=== PATIENT | female | born 1955 | race Caucasian/White ===

== ENCOUNTER 2017-12-07 11:13 | Inpatient (IN) | payer OTHER ==
--- NOTE | 2017-12-07 12:22 | PDGENHP ---
History and Physical - Chief Complaint melena, Fatigue - History of Present Illness 62 yo female with Pancreatic cancer who is getting chemotherapy presented to Oncology today for Melena and weakness. Found to have an acute drop in Hgb and sent here for direct admission. She reports Melena x several days with increasing fatigue. NO CP or SOB. No hx of GIB. In the office, labs showed a 4 point drop in Hgb. Her VS are stable. She is not tachycardic. She does not have an known CV disease. She is not on blood thinners or Platelet inhibitors She has also had + nausea and some abd discomfort. NO diarrhea. NO emiss. Denies fevers, focal weakness, urinary symptoms, cough, legs swelling, palpitations PMHx: Pancreatic cancer Sjogren Soc: social ETOH, no tobacco, retired nurse FmHx: hx of PE and Afib (mother) Labs: reviewed History Information I have personally reviewed and updated: medical history, social history - Social History Smoking Status: Never smoked Review of Systems Review of Systems: ROS: 10pt was reviewed & negative except for what was stated in HPI & below Physical Exam Physical Exam: Temp Pulse Resp BP Pulse Ox 36.6 C 89 12 98/78 L 98 12/07/17 11:57 12/07/17 11:57 12/07/17 11:57 12/07/17 11:57 12/07/17 11:57 Constitutional: no apparent distress, appears nourished Eyes: PERRL, EOMI Ears, Nose, Mouth, Throat: moist mucous membranes, hearing normal Cardiovascular: regular rate and rhythym, No edema Respiratory: no respiratory distress, no rales or rhonchi, clear to auscultation Gastrointestinal: normoactive bowel sounds, soft, non-tender abdomen Skin: warm Musculoskeletal: full muscle strength Neurologic: AAOx3 Psychiatric: interacting appropriately, not anxious, not encephalopathic Lymph, Heme, Immunologic: No petechiae Assessment & Plan Assessment: #ABLA #GI Bleed, Melena #Pancreatic cancer, on chemotherapy #Fatigue and Weakness due to ABLA Plan: Admit Transfuse IVF while awaiting transfusion GI consult IV Protonix Onc Consult Screening CT Chest and Abdomen
[2017-12-07] MEDS ORDERED: ONDANSETRON 4 MG/2 ML VIAL IVP PRN (12:25)
[2017-12-07] MEDS ORDERED: NS 500 ML IV ONE (12:25)
[2017-12-07] MEDS ORDERED: ACETAMINOPHEN 325 MG TAB PO PRN (12:25)
[2017-12-07] MEDS ORDERED: ONDANSETRON DISINTEGRATING 4 MG TAB PO PRN (12:25)
[2017-12-07] MEDS ORDERED: PANTOPRAZOLE SODIUM 40 MG VIAL IVP SCH (12:30)
--- NOTE | 2017-12-07 14:16 | GCON ---
[f rep st] CONSULTATION ONCOLOGY INITIAL VISIT PRIMARY ONCOLOGIST: Maurizio Altamirano MD. REASON FOR VISIT: Evaluation and management of pancreatic cancer. HISTORY OF PRESENT ILLNESS: The patient is a 62-year-old woman who was initially diagnosed February 2017 with a metastatic pancreatic cancer with mets to the liver. She presented with right upper nessa drant pain with radiation to the back, decreased appetite, and fatigue. The liver was biopsied and w as consistent with an upper GI origin, and her CA-19-9 was about 330,000. Upper endoscopy with ultra sound showed a tumor in the body of the pancreas invading the splenic vein, and a biopsy was positive for adenocarcinoma. Interestingly, it was HER/2 amplified by FISH. She started on FOLFIRINOX and h ad a good response after the first 6 cycles. After cycle 10, oxaliplatin was dropped due to worsenin g peripheral neuropathy. She still has it, but slowly getting better. She has also moved from every 2 week treatments to every 3 week treatments. Generally, she has been tolerating it and managing it well with the last week and a half for the next treatment, she would be feeling essentially back to normal. She called last evening with complaints of black stool last Tuesday. Since that time she had been fee ling fatigued, but she denied any further melena. She did have multiple loose stools yesterday, gayle malorie. In the office today, her blood count came back with a fairly acute drop in her hemoglobin from 12.5 g/dL a couple of weeks ago to 8.4. She is admitted for management and workup of GI bleed. ALLERGIES: She has no known drug allergies. HOME MEDICATIONS: Include simethicone, loperamide as needed, potassium, multivitamin, lorazepam, Lom otil, Creon 36,000 units, herbs, and estradiol. 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 Cheung. SURGICAL HISTORY: Unremarkable. SOCIAL HISTORY: Drinks alcohol occasionally. Does not smoke. She is a retired nurse. FAMILY HISTORY: Significant for colon cancer in her mother. REVIEW OF SYSTEMS: 10-point review of systems performed. Pertinent positives as per HPI, otherwise negative. PHYSICAL EXAM: VITAL SIGNS: Her temperature is 36.6, pulse 89. Blood pressure is 98/78. Blood pre ssure is a little lower than her typical. Weight was 138. GENERAL: She is a well-appearing woman. She is in no distress. HEENT: Unremarkable. LUNGS: Clear. CARDIAC: Regular without murmur. ABD OMEN: Soft, nontender without significant organomegaly. MUSCULOSKELETAL: Nontender over her spine. NEUROLOGIC: Grossly intact. LABS: White count today is 9600 with an ANC of 7100. Hemoglobin is 8.4 g/dL. It was 12.5 two weeks ago. Platelet count is 140,000. Her chemistries from 2 weeks ago were unremarkable. Her last CA-19 -9 was 1191 and continuing to respond to chemotherapy. IMPRESSION: 1. Probable upper gastrointestinal bleed. 2. Metastatic pancreatic cancer, clinically under good control with current chemotherapy. Plan is t o reimage her with CT chest, abdomen, and pelvis, which can be done while in the hospital. 3. Remote history of Sjogren syndrome. DISCUSSION/PLAN: Her history is consistent with an acute gastrointestinal bleed, but may have stoppe d. She is being admitted to the hospital and treated supportively, but clinically she is doing well so far. GI has been consulted and while here, we will get a CT scan. Hopefully, it will be nothing too serious and if her disease is still under good control, then she will be discharged relatively so on. We will follow along with you in the hospital. /[id number]/MODL
[2017-12-07] MEDS ORDERED: fentaNYL 100 MCG/2 ML INJ ONE (14:25)
[2017-12-07] MEDS ORDERED: MIDAZOLAM 2 MG/2 ML VIAL ONE (14:25)
[2017-12-07] MEDS ORDERED: EPINEPHrine 1 MG/10 ML SYR IVP ONE (14:25)
[2017-12-07 14:59] LABS: INR 1.07 (0.83-1.16); PROTIME(PATIENT) 14.1 SEC (12.0-15.0)
[2017-12-07] MEDS ORDERED: DIPHENOXYLATE/ATROPINE LOMOTIL 1 TAB PO PRN (15:21)
[2017-12-07] MEDS ORDERED: SIMETHICONE 80 MG TAB CHEW PO PRN (15:21)
--- NOTE | 2017-12-07 15:41 | GCON ---
[f rep st] CONSULTATION GI INPATIENT CONSULTATION DATE OF CONSULTATION: 12/07/2017 REFERRING PHYSICIAN: Hood Velazquez MD I was kindly requested to see patient by Dr. Velazquez in consultation for a chief complaint of melena. She is a 62-year-old white female who noticed this over the last several days. With this, she has had some increasing fatigue. She was seen by her oncologist today, and noted to have a drop in her baseline hematocrit, and was admitted to the hospital. She has had some indigestion lately. She has been using ibuprofen for headaches for about 1 week. She has also had some nausea. She denies heartburn. She denies iron use, Pepto-Bismol. She has metastatic pancreatic cancer, and is presently undergoing chemotherapy. For the most part, she believes her tumor is responding. She did undergo colonoscopy in 2014, for a family history of colon cancer, and she states this was unremarkable. Some diverticulosis was noted. PAST MEDICAL HISTORY: 1. As above. 2. Otherwise, noncontributory. MEDICATIONS: Outpatient include Gas-X and Imodium as needed, Lomotil as needed , potassium daily, Ativan before bed, and Creon 36,000 units, 2 tablets with meals. Inpatient medications include pantoprazole 40 mg IV twice a day. ALLERGIES: No known drug allergies. SOCIAL HISTORY: Social alcohol only. She is a retired nurse. FAMILY HISTORY: Negative for similar melena. REVIEW OF SYSTEMS: Positive pertinent review of systems as per my HPI. Otherwise, complete review of systems is negative. PHYSICAL EXAM: CONSTITUTIONAL: Nontoxic appearing, pleasant woman. SKIN: Warm, dry. EYES: Pupils equal, round, reactive to light and accommodation. EARS, NOSE, MOUTH, AND THROAT: Oropharynx without masses, moist mucosa. CARDIOVASCULAR: Normal S2, normal PMI. RESPIRATORY: Lungs clear to auscultation and percussion anteriorly. GASTROINTESTINAL: Abdomen soft, without significant tenderness. NEUROLOGIC: Grossly nonfocal, cranial nerves grossly intact. PSYCHIATRIC: Orientation, insight appropriate. MUSCULOSKELETAL: Strength grossly normal throughout, normal station. LABORATORIES: Include an outpatient hemoglobin of 8.4, decreased from her baseline of 12.5. Several weeks ago, she apparently had unremarkable chemistries. ASSESSMENT: Description of melena, with a drop in her hematocrit. Suspect due to gastrointestinal blood loss. In turn, suspect an upper source. Peptic ulcer disease from ibuprofen is most likely. Other possibilities could include tumor invasion into her stomach or duodenum. Bleeding from her pancreatic cancer into her pancreatic duct is also possible. PLAN: 1. I have recommended upper endoscopy. She wishes to hold off on this for today. 2. CT imaging has been ordered. Possibly, this could show worsening pancreatic cancer or invasion into the upper GI tract. 3. Clear liquids for dinner and breakfast. N.p.o. after breakfast tomorrow, in case upper endoscopy needed in the afternoon. 4. Serial hematocrits, transfusion of blood as needed. 5. IV fluids. 6. For now, we will change her Protonix to a Protonix drip. Thank you for allowing me to help in the management of the patient. /[id number]/MODL MTDD
--- NOTE | 2017-12-07 15:53 | PDMN ---
Medical Necessity Medical necessity: MCG: M180 GIB-upper A-2 days: pt with melena, weakness and fatigue, ABLA, HX of pancreatic Ca on chemo, further monitoring and tx needed.
[2017-12-07] MEDS ORDERED: IOPAMIDOL (ISOVUE-300) 100 ML BTL ONE (18:14)
[2017-12-07] MEDS: LIPASE 24,000/AMYLASE/PROTEASE (CREON) 1 CAP PO SCH (18:45)
[2017-12-07] MEDS ORDERED: PANTOPRAZOLE SODIUM 40 MG TAB PO SCH (21:00)
[2017-12-07] MEDS ORDERED: LORazepam 1 MG TAB PO SCH (21:00)
[2017-12-07] MEDS: PANTOPRAZOLE SODIUM 40 MG VIAL IVP SCH (22:25)
[2017-12-08] MEDS: 1/2 NS 1,000 ML IV SCH ×2 (01:56→14:34)
[2017-12-08] MEDS: PANTOPRAZOLE SODIUM 40 MG VIAL IVP SCH ×2 (04:31→09:11)
[2017-12-08 06:43] LABS: PLATELET COUNT 127 10^3/uL (150-400)
[2017-12-08] MEDS: LIPASE 24,000/AMYLASE/PROTEASE (CREON) 1 CAP PO SCH ×3 (07:39→17:43)
[2017-12-08] MEDS ORDERED: ESTRADIOL PO SCH (09:00)
[2017-12-08] MEDS ORDERED: MULTIVITAMINS 1 EACH TAB PO SCH (09:00)
[2017-12-08] MEDS ORDERED: NORETHINDRONE ACET PO SCH (09:00)
[2017-12-08] MEDS: LOPERAMIDE HCL 2 MG CAP PO PRN ×2 (09:11→09:12)
[2017-12-08] MEDS ORDERED: PANTOPRAZOLE SODIUM 40 MG VIAL IVP SCH ×2 (11:00→21:00)
--- NOTE | 2017-12-08 11:49 | SOAPPROG ---
[facility] Progress Note Assessment/Plan: E&M pancreatic cancer * Pancreatic cancer: day 16 cycle 16 FOLFURINOX (minus oxaliplatin); counts ok. CT looks probably stable but will defer to Dr. Altamirano. Counts ok * GI bleed: esophageal varices seen on CT; probable source of bleeding. Has EGD scheduled today. H/H is ok so seems like she has stopped with the acute bleed. Subjective: Had 2 large volume dark stools but no obvious blood. Feels well. Objective: Vital Signs Temp Pulse Resp BP Pulse Ox 36.9 C 79 16 118/83 H 94 12/08/17 07:30 12/08/17 07:30 12/08/17 07:30 12/08/17 07:30 12/08/17 07:30 Laboratory Results 12/08/17 06:30 12/08/17 06:30 12/07/17 12/08/17 12/09/17 05:59 05:59 05:59 Intake Total 450 Output Total 1200 Balance -750 PT 14.1 SEC (12.0-15.0) 12/07/17 14:30 INR 1.07 (0.83-1.16) 12/07/17 14:30 CT Scan of the Abdomen and Pelvis (With Contrast) at 1825 hours Impression: 1. Decreased size and number of pathology proven liver metastases. 2. No new or worsening metastatic disease. 3. New gastroesophageal varices and periumbilical venous dilatation compatible with portal hypertension. 4. Trace perihepatic free fluid. Dictated By: Eder Bedoya MD Physical Exam - Physical Exam General Appearance: no apparent distress Respiratory: lungs clear Cardiac/Chest: regular rate, rhythm Abdomen: non-tender, soft ICD10 Worksheet Patient Problems: Problems Problem Status Onset Esophageal varices Acute GI bleed Acute Pancreatic cancer metastasized to liver Chronic
--- NOTE | 2017-12-08 13:05 | HOSPPROG ---
Hospitalist Progress Note Assessment/Plan: #Acute blood loss anemia #GI Bleed, likely upper, Melena #Pancreatic cancer, on chemotherapy -CT chest and Abd/Pelvis with no new lesions. She will f/u with her Oncologist #Fatigue and Weakness due to ABLA Plan: -Onc care and mgmt per Oncology -s/p transfusion -serial H/H -will have scope today -cont IV Protonix -Dispo: d/c home soon pending endoscopy and no further bleeding. Subjective: Additional episodes of melena yesterday and today. no cp or sob. tolerated transfusion fine. Objective: Vital Signs Temp Pulse Resp BP Pulse Ox 36.9 C 79 16 118/83 H 94 12/08/17 07:30 12/08/17 07:30 12/08/17 07:30 12/08/17 07:30 12/08/17 07:30 Laboratory Results 12/08/17 12:25 12/08/17 06:30 12/07/17 12/08/17 12/09/17 05:59 05:59 05:59 Intake Total 450 Output Total 1200 Balance -750 PT 14.1 SEC (12.0-15.0) 12/07/17 14:30 INR 1.07 (0.83-1.16) 12/07/17 14:30 - Physical Exam Constitutional: no apparent distress, appears nourished Eyes: PERRL, EOMI Ears, Nose, Mouth, Throat: moist mucous membranes, hearing normal Cardiovascular: regular rate and rhythym, No edema Respiratory: no respiratory distress, no rales or rhonchi, clear to auscultation Gastrointestinal: normoactive bowel sounds, soft, non-tender abdomen Skin: warm Musculoskeletal: No generalized weakness Neurologic: AAOx3 Psychiatric: interacting appropriately, not anxious, not encephalopathic Lymph, Heme, Immunologic: No petechiae ICD10 Worksheet Patient Problems: Problems Problem Status Onset Esophageal varices Acute GI bleed Acute Pancreatic cancer metastasized to liver Chronic
--- NOTE | 2017-12-08 14:53 | ASMTCMCOM ---
CM Note CM Note Notes: Pt have upper endo today to look for source of GI bleed. Pt's DC needs are TBD. Date Signed: 12/08/2017 02:53 PM Electronically Signed By:Chastity Nguyen LCSW
[2017-12-08] MEDS ORDERED: EPINEPHrine 1 MG/10 ML SYR IVP ONE (16:14)
--- NOTE | 2017-12-08 16:17 | PDANEPAE ---
ANE History of Present Illness hematochezia, anemia, s/p tx of PRBC ANE Past Medical History - Cardiovascular History Hx Hypertension: No Hx Arrhythmias: No Hx Chest Pain: No Hx Coronary Artery / Peripheral Vascular Disease: No Hx CHF / Valvular Disease: No Hx Palpitations: No - Pulmonary History Hx COPD: No Hx Asthma/Reactive Airway Disease: No Hx Recent Upper Respiratory Infection: No Hx Oxygen in Use at Home: No Hx Sleep Apnea: No Sleep Apnea Screening Result - Last Documented: Negative - Neurologic History Hx Cerebrovascular Accident: No - Endocrine History Hx Diabetes: No Hypothyroid: No Hyperthyroid: No Obesity: no - Renal History Hx Renal Disorders: No - Liver History Hx Hepatic Disorders: No - Neurological & Psychiatric Hx Hx Neurological and Psychiatric Disorders: Yes Neurological / Psychiatric History 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 - Cancer History Hx Cancer: Yes Cancer History Comment: pancreatic cancer, dx in 03/13 - GI History GERD: no Hx Gastrointestinal Disorders: Yes Gastrointestinal History Comment: GI Bleeding - Chronic Pain History Chronic Pain: No - Surgical History Prior Surgeries: cholecystectomy, endometrial ablation ANE Review of Systems Review of Systems: - Exercise capacity METS (RN): 3 METS ANE Patient History - Allergies Allergies/Adverse Reactions: No Allergies [NKDA] Allergy (Verified 12/07/17 12:24) - Home Medications Home Medications: Diphenoxylate HCl/Atrop Sulf [Lomotil Tab (*)] 1 tab PO QID PRN 12/07/17 [Last Taken Unknown] Estradiol/Norethindrone Acet [Activella 0.5-0.1 mg Tablet] 1 each PO DAILY 12/07 [Last Taken 12/05/17] Herbals/Supplements -Info Only 1 ea PO DAILY 12/07/17 [Last Taken Unknown] LORazepam [Ativan (*)] 1 mg PO HS 12/07/17 [Last Taken 12/06/17] Lipase/Protease/Amylase [Shobha Kumar 36,000 Units Capsule] 2 each PO TIDMEAL [Last Taken 12/06/17 18:00] Loperamide HCl [Imodium 2 mg (*)] 2 mg PO PRN PRN 12/07/17 [Last Taken 12/06/17] Multivitamins [Multivitamin (*)] 1 each PO DAILY 12/07/17 [Last Taken 12/06/17] Potassium Cl [Klor-Con 20 meq (*)] 20 meq PO DAILY 12/07/17 [Last Taken 12/07/17 ] Simethicone [Gas Relief] 80 mg PO QID PRN 12/07/17 [Last Taken 11/30/17] - NPO status NPO Since - Liquids (Date): 12/08/17 NPO Since - Liquids (Time): 09:00 NPO Since - Solids (Date): 12/07/17 NPO Since - Solids (Time): 23:59 - Anes Hx Anes Hx: no prior problems - Smoking Hx Smoking Status: Never smoked Marijuana use: No - Alcohol Use Alcohol Use: None - Family Anes Hx Family Anes Hx: none ANE Labs/Vital Signs - Labs Result Diagrams: 12/08/17 12:25 12/08/17 06:30 - Vital Signs Blood Pressure: 112/70 Heart Rate: 85 Respiratory Rate: 16 O2 Sat (%): 92 Height: 157.48 cm Weight: 62.8 kg ANE Physical Exam - Airway Neck exam: decreased ROM Mallampati Score: Class 2 Mouth exam: normal dental/mouth exam - Pulmonary Pulmonary: clear to auscultation - Cardiovascular Cardiovascular: regular rate and rhythym - ASA Status ASA Status: III ANE Anesthesia Plan Anesthesia Plan: GA with mask
[2017-12-08] MEDS ORDERED: PROPOFOL 200 MG/20 ML VIAL ONE (16:24)
[2017-12-08] MEDS ORDERED: fentaNYL 100 MCG/2 ML INJ ONE (16:25)
[2017-12-08] MEDS ORDERED: NALOXONE HCL 0.4 MG/ML INJ IVP PRN (16:42)
--- NOTE | 2017-12-08 16:49 | POSTANESTH ---
Post Anesthetic Evaluation Cardiovascular Status: Normal, Stable Respiratory Status: Normal, Stable Level of Consciousness/Mental Status: Can Participate in Eval Pain Control: Adequate, Prn Tx Ordered Nausea/Vomiting Control: Adequate, Prn Tx Ordered Complications Possibly Related to Anesthesia: None Noted
--- NOTE | 2017-12-08 17:25 | GIREPORT ---
[facility] Surgical Services - Endoscopy Department Patient Name: Minnie Peralta Procedure Date: 12/08/2017 3:36 PM Patient Type: Inpatient Attending MD/ ER Physician: Derick Ramos MD Procedure: Upper GI endoscopy Indications: Melena. Hct now stable x multiple values. CT with varices; patent splen ic and portal vein. Providers: Derick Ramos MD, [facility] Referring MD: Maurizio Altamirano MD; Stephane Warren MD; [facility] Hospitalist service Medicines: See the Anesthesia note for documentation of the administered medicatio ns Complications: No immediate complications. Description of Procedure: After obtaining informed consent, the endoscope was passed under direct vision. Throughout the procedure, the patient's blood pressure, pulse, and oxygen saturations were monitored continuously. The Endoscope was intro duced through the mouth, and advanced to the second part of duodenum. Findings: The examined esophagus was normal. Varices with no bleeding were found in the cardia. They were moderately large in size. The examined duodenum was normal. Estimated Blood Loss: none. Post Op Diagnosis: - Gastric varices, as above. Suspect this was the cause of her melena. Now, no evidence of further bleeding. In terms of etiology, suspect some underlying portal hypertension, from her liver mets (and, possible side-effect to one of her present or previous chemotherapy agents?). Recommendation: - feed - buffcap - no PPI needed - to try and prevent rebleeding, would recommend nadolol 40 mg p.o. tara ly. I discussed this with her , Romero. He would first like to discuss wi th their outpt. oncologist, Dr. Epstein (who they see soon), before proce eding. - in the future, if return of significant bleeding, no endoscopic intervention is unfortunately available. Best at that point would be TI PS (although with her liver mets, potentially more higher risk procedure). Else, from a G.I. standpoint, o.k. to d/c home. As an outpt., would recommend iron replacement therapy x 8 week. Else, please call if we ca n be of further help [phone]). Thank you for allowing me to help in the management of this patient. Attending Participation: I personally performed the entire procedure. Rachel Sepulveda MD Derick Ramos MD 12/08/2017 5:25:24 PM This report has been signed electronicallyPeter MD Rachel Number of Addenda: 0 Note Initiated On: 12/08/2017 3:36 PM [email or web address]
[2017-12-08 17:46] VITALS: BP 125/77
--- NOTE | 2017-12-08 18:21 | PDDCSUM ---
Discharge Summary Discharge Summary: DDX: #Acute blood loss anemia -s/p PRBC transfusion, now feels better #GI Bleed, likely due to Gastric Varices -no e/o further bleeding per endoscopy -to try to prevent bleeding would recommend Nadolol 40mg daily. She wants to first d/w her Oncologist, Dr. Altamirano. -recommend Iron supplementation, she will first d/w her Oncologist -no need for PPI -Regular diet #Pancreatic cancer, on chemotherapy -CT chest and Abd/Pelvis with no new lesions. She will f/u with her Oncologist #Fatigue and Weakness due to ABLA HPI/hospital course: This is a 62 yo female who was admitted due to acute blood loss anemia from GI bleed. She had melena. She was managed appropriately and required PRBC transfusion. Endoscopy was performed which revealed gastric varices. No e/o recurrent bleeding. Stable. Please see above for details Meds: see med rec exam: refer to PN from today f/u: with Oncology. Total time spent on d/c is 40 mins.
== END 2017-12-08 20:00 | disposition home or self-care (01) | DRG 300 ==
LOC: F1N 11:45
PROVIDERS: ADMIT Family Medicine; ATTEND Family Medicine
PROC: 30233N1 Transfusion of Nonautologous Red Blood Cells into Peripheral Vein, Percutaneous Approach (ICD-10-PCS; principal; 2017-12-08 16:30)
PROC: 0DJ08ZZ Inspection of Upper Intestinal Tract, Via Natural or Artificial Opening Endoscopic (ICD-10-PCS; principal; 2017-12-08 16:30)
DX: I86.4 Gastric varices (principal); D62 Acute posthemorrhagic anemia; K92.2 Gastrointestinal hemorrhage, unspecified; C25.1 Malignant neoplasm of body of pancreas; C78.7 Secondary malignant neoplasm of liver and intrahepatic bile duct; M35.00 Sjogren syndrome, unspecified; H35.712 Central serous chorioretinopathy, left eye
CPT/HCPCS: J1642; J2250; J2704; J3010; P9016; Q9967

== ENCOUNTER → 2018-03-03 | Outpatient (CLI) | payer OTHER | LOC: FIMAGING 12:17 | PROVIDERS: ATTEND Internal Medicine Hematology & Oncology | DX: C25.9 Malignant neoplasm of pancreas, unspecified (principal); C78.7 Secondary malignant neoplasm of liver and intrahepatic bile duct ==

== ENCOUNTER 2018-05-04 14:22 | Inpatient (IN) | payer OTHER ==
[2018-05-04] MEDS ORDERED: NS 1,000 ML IV ONE (15:01)
--- NOTE | 2018-05-04 15:05 | EDPHY ---
H & P Stated Complaint: abd pain - Personal History Current Tetanus/Diphtheria Vaccine: Yes Current Tetanus Diphtheria and Acellular Pertussis (TDAP): Yes - Medical/Surgical History Hx Asthma: No Hx Chronic Respiratory Disease: No Hx Diabetes: No Hx Cardiac Disease: No Hx Renal Disease: No Hx Cirrhosis: No Hx Alcoholism: No Hx HIV/AIDS: No Hx Splenectomy or Spleen Trauma: No Other PMH: pancreatic CA, sjorgrens, - Social History Smoking Status: Never smoked Time Seen by Provider: 05/04/18 14:52 HPI/ROS: CHIEF COMPLAINT: Abdominal pain HISTORY OF PRESENT ILLNESS: 63-year-old female history of pancreatic cancer currently receiving chemotherapy. Patient received chemotherapy yesterday and notes that the day before she noted antecedent abdominal pain and discomfort with no nausea or vomiting. Her last bowel movement was 4 days ago, has not passed gas. Positive nausea. No vomiting. No fever or chills. Seen at [facility] today, referred to the ER after KUB x-ray showed questionable bowel obstruction, questionable intussusception. REVIEW OF SYSTEMS: 10 systems reviewed and negative with the exception of the elements mentioned in the history of present illness PAST MEDICAL & SURGICAL HISTORY: Current treatment for pancreatic CA SOCIAL HISTORY: Nonsmoker PHYSICAL EXAM (Prior to examination, patient consented to physical exam, hands were washed and my usual and customary physical exam procedures followed) 1) GENERAL: Well-developed, well-nourished, alert and oriented. Appears to be in no acute distress. 2) HEAD: Normocephalic, atraumatic 3) HEENT: Pupils equal, round, reactive to light bilaterally. Sclera anicteric. Nasopharynx, oropharynx, clear, no lesions. MoistDry mucous membranes. Ears bilaterally with normal tympanic membranes. 4) NECK: Full range of motion, no meningeal signs. 5) LUNGS: Clear auscultation bilaterally, no wheezes, no rhonchi, no retractions. 6) HEART: Regular rate and rhythm, no murmur, no heave, no gallop. 7) ABDOMEN: No guarding, firm, diffusely tender to palpation all quadrants, 8) MUSCULOSKELETAL: Moving all extremities, no focal areas of tenderness, no obvious trauma. No peripheral edema or discoloration. 9) BACK: No CVA tenderness, no midline vertebral tenderness, no fluctuance, no step-off, no obvious trauma, no visual or palpable abnormality. 10) SKIN: No rash, no petechiae. 11) Psychiatric: Patient is oriented X 3, there is no agitation. DIFFERENTIAL DIAGNOSIS: In no particular order including but not limited to bowel obstruction, intussusception, malignancy, diverticulitis (Marla,Stacey Lanette) Constitutional: Initial Vital Signs Temperature (C) 36.8 C 05/04/18 14:33 Heart Rate 76 05/04/18 14:33 Respiratory Rate 16 05/04/18 14:33 Blood Pressure 121/76 H 05/04/18 14:33 O2 Sat (%) 96 05/04/18 14:33 O2 Delivery Mode Room Air Allergies/Adverse Reactions: No Allergies [NKDA] Allergy (Verified 05/04/18 14:31) Home Medications: Medication Instructions Recorded Estradiol/Norethindrone Acet 1 each PO DAILY 12/07/17 [Activella 0.5-0.1 mg Tablet] LORazepam [Ativan (*)] 1 mg PO HS PRN 12/07/17 Lipase/Protease/Amylase [Creon Dr 2 each PO TIDMEAL 12/07/17 36,000 Units Capsule] Loperamide HCl [Imodium 2 mg (*)] 2 mg PO PRN PRN 12/07/17 Multivitamins [Multivitamin (*)] 1 each PO DAILY 12/07/17 Potassium Cl [Klor-Con 20 meq (*)] 20 meq PO DAILY 12/07/17 Simethicone [Gas Relief] 80 mg PO QID PRN 12/07/17 Acetaminophen [Tylenol ES 500 mg 1,000 mg PO Q8H PRN 05/04/18 (*)] Alpha Lipoic Acid 600 mg PO DAILY 05/04/18 Dexamethasone [Decadron 4 MG (*)] 2 mg PO DAILY 05/04/18 Hydrocodone/Acetaminophen [[place] 1 tab PO Q4H PRN 05/04/18 5/325 (*)] Nadolol [Nadolol 40 mg] 40 mg PO HS 05/04/18 Omeprazole 20 mg PO DAILY 05/04/18 Ondansetron HCl [Zofran] 8 mg PO Q8H 05/04/18 traMADol [Ultram 50 mg (*)] 50 mg PO Q4 PRN 05/04/18 Medical Decision Making ED Course/Re-evaluation: 3:02 p.m.: I reviewed the patient's KUB x-ray from earlier today showing questionable intussusception, bowel obstruction. Will obtain diagnostic studies including CT imaging and plan on likely admission. Care of patient under supervision of secondary supervising physician Dr Renner who also evaluated patient. 3:09 p.m.: Dr. Sosa Reeves in the ER to admit patient. (Stacey Gutiérrez) - Data Points Medications Given: Acetaminophen (Tylenol) 650 mg PO Q6HRS PRN PRN Reason: Pain, Mild/Fever, Can Take PO Stop: 11/01/18 04:05 Last Admin: 05/05/18 11:09 Dose: 650 mg Sodium Chloride (Ns) 1,000 mls @ 100 mls/hr IV CONT PHIL Stop: 10/31/18 15:29 Last Admin: 05/04/18 17:40 Dose: 1,000 mls Discontinued Medications Acetaminophen (Tylenol) 500 mg PO Q6HRS PRN PRN Reason: PACU, Pain Mild Stop: 05/04/18 21:36 Last Admin: 05/04/18 21:31 Dose: 500 mg Bupivacaine HCl (Sensorcaine 0.5% Vial) Confirm Administered Dose 30 ml .ROUTE .STK-MED ONE Stop: 05/04/18 19:08 Last Admin: 05/04/18 21:00 Dose: 20 ml Cefazolin Sodium (Ancef) Confirm Administered Dose 1 gm .ROUTE .STK-MED ONE Stop: 05/04/18 20:10 Last Admin: 05/04/18 20:11 Dose: 1 gm Cefazolin Sodium (Ancef) Confirm Administered Dose 1 gm .ROUTE .STK-MED ONE Stop: 05/04/18 20:10 Last Admin: 05/04/18 20:11 Dose: 1 gm Sodium Chloride (Ns) 1,000 mls @ 0 mls/hr IV ONCE ONE PRN Reason: Wide Open Stop: 05/04/18 15:02 Last Admin: 05/04/18 15:50 Dose: 1,000 mls Lactated Ringer's (Lr) 1,000 mls @ 0 mls/hr IV ONCE ONE PRN Reason: As Directed Stop: 05/04/18 20:06 Last Admin: 05/04/18 19:45 Dose: 1,000 mls Midazolam HCl (Versed) 2 mg IVP ONCALL ONE Stop: 05/04/18 19:18 Last Admin: 05/04/18 19:45 Dose: 2 mg Departure - Departure Disposition: [facility] Inpatient Acute Clinical Impression: SBO (small bowel obstruction), Abdominal pain Condition: Good
[2018-05-04] MEDS ORDERED: HYDROmorphONE/DILAUDID 1 MG/ML INJ IVP PRN ×2 (15:29→21:04)
[2018-05-04] MEDS ORDERED: ACETAMINOPHEN 650 MG SUPP PR PRN (15:29)
[2018-05-04] MEDS ORDERED: ONDANSETRON 4 MG/2 ML VIAL IVP PRN ×2 (15:29→20:36)
[2018-05-04] MEDS ORDERED: PROMETHAZINE HCL 25 MG/ML INJ IVP PRN ×2 (15:29→20:36)
[2018-05-04] MEDS ORDERED: NS 1,000 ML IV SCH (15:30)
[2018-05-04] MEDS ORDERED: IOPAMIDOL (ISOVUE-300) 100 ML BTL ONE (15:49)
[2018-05-04 16:12] LABS: PLATELET COUNT 329 10^3/uL (150-400)
--- NOTE | 2018-05-04 16:18 | PDGENHP ---
History and Physical - Chief Complaint abdominal pain, N/V - History of Present Illness 63 yo female with h/o metastatic pancreatic cancer presents to ED with 2 days of abdominal discomfort, nausea and vomiting. She was diagnosed with pancreatic cancer in 02/2017 with mets to the liver. She completed a course of Folfironox chemo and is now on Gemcitabine and Abraxane, just completed cycle one. Over the past 2 days, she has had increased abdominal discomfort, which is generalized and feels crampy at times. She was very distended yesterday, but feels less so today. She has vomited the past 2 nights and has not tolerated oral intake. She had some watery stool come out yesterday afternoon after po dulcolax, but hasn't had a normal BM for several days. No fevers/ chills, CP or SOB. She was seen at [facility] today and an xray showed concern for SBO versus possible intussusception. She was sent to the ED where a CT scan of the abdomen was performed and results are pending. She is admitted for further management. History Information - Allergies/Home Medication List Allergies/Adverse Reactions: No Allergies [NKDA] Allergy (Verified 05/04/18 14:31) Home Medications: Estradiol/Norethindrone Acet [Activella 0.5-0.1 mg Tablet] 1 each PO DAILY 12/07 [Last Taken 05/02/18] LORazepam [Ativan (*)] 1 mg PO HS PRN 12/07/17 [Last Taken 05/03/18] Lipase/Protease/Amylase [Shobha Kumar 36,000 Units Capsule] 2 each PO TIDMEAL [Last Taken 05/02/18] Loperamide HCl [Imodium 2 mg (*)] 2 mg PO PRN PRN 12/07/17 [Last Taken 05/02/18] Multivitamins [Multivitamin (*)] 1 each PO DAILY 12/07/17 [Last Taken 05/02/18] Potassium Cl [Klor-Con 20 meq (*)] 20 meq PO DAILY 12/07/17 [Last Taken 05/02/18 ] Simethicone [Gas Relief] 80 mg PO QID PRN 12/07/17 [Last Taken 11/30/17] Acetaminophen [Tylenol ES 500 mg (*)] 1,000 mg PO Q8H PRN 05/04/18 [Last Taken 05/04/18 11:30] Alpha Lipoic Acid 600 mg PO DAILY 05/04/18 [Last Taken 05/02/18] Dexamethasone [Decadron 4 MG (*)] 2 mg PO DAILY 05/04/18 [Last Taken 05/03/18] Hydrocodone/Acetaminophen [[place] 5/325 (*)] 1 tab PO Q4H PRN 05/04/18 [Last Taken Unknown] Nadolol [Nadolol 40 mg] 40 mg PO HS 05/04/18 [Last Taken 05/02/18] Omeprazole 20 mg PO DAILY 05/04/18 [Last Taken 05/02/18] Ondansetron HCl [Zofran] 8 mg PO Q8H 05/04/18 [Last Taken 05/03/18] traMADol [Ultram 50 mg (*)] 50 mg PO Q4 PRN 05/04/18 [Last Taken 1 Week Ago ~07/14] I have personally reviewed and updated: family history, medical history, social history, surgical history - Social History Smoking Status: Never smoked Review of Systems Review of Systems: ROS: 10pt was reviewed & negative except for what was stated in HPI & below Physical Exam Physical Exam: Temp Pulse Resp BP Pulse Ox 36.9 C 73 16 115/78 94 05/04/18 15:55 05/04/18 15:55 05/04/18 15:55 05/04/18 15:55 05/04/18 15:55 Constitutional: no apparent distress Eyes: PERRL Ears, Nose, Mouth, Throat: moist mucous membranes Cardiovascular: regular rate and rhythym Respiratory: no respiratory distress, clear to auscultation Gastrointestinal: other (soft, mild-mod distention, +diffuse TTP, no r/r/g, slightly tympanitic to percussion) Lab Data & Imaging Review 05/04/18 15:50 05/04/18 15:50 WBC 6.20 10^3/uL (3.80-9.50) 05/04/18 15:50 RBC 3.76 10^6/uL (4.18-5.33) L 05/04/18 15:50 Hgb 12.5 g/dL (12.6-16.3) L 05/04/18 15:50 POC Hgb 12.6 gm/dL (12.6-16.3) 05/04/18 16:06 Hct 37.4 % (38.0-47.0) L 05/04/18 15:50 POC Hct 37 % (38-47) L 05/04/18 16:06 MCV 99.5 fL (81.5-99.8) 05/04/18 15:50 MCH 33.2 pg (27.9-34.1) 05/04/18 15:50 MCHC 33.4 g/dL (32.4-36.7) 05/04/18 15:50 RDW 19.9 % (11.5-15.2) H 05/04/18 15:50 Plt Count 329 10^3/uL (150-400) 05/04/18 15:50 MPV 9.9 fL (8.7-11.7) 05/04/18 15:50 POC Sodium 136 mEq/L (135-145) 05/04/18 16:06 POC Potassium 4.2 mEq/L (3.3-5.0) 05/04/18 16:06 POC Chloride 100 mEq/L (97-110) 05/04/18 16:06 POC BUN 32 mg/dL (7-23) H 05/04/18 16:06 POC Creatinine 0.7 mg/dL (0.6-1.0) 05/04/18 16:06 POC Glucose 144 mg/dL (70-100) H 05/04/18 16:06 Assessment & Plan Assessment: Abdominal pain with N/V - suspect obstructive process, await CT results, possible surgery consultation -pain control -NPO / bowel rest -anti-emetics Metastatic pancreatic cancer - followed by Dr. Altamirano, just completed cycle 1 of Gemcitabine / Abraxane DNR Dispo - admit to inpt, anticipate >48 hrs hospitalization for ongoing management of abdominal pain, N/V, possible obstruction
[2018-05-04] MEDS ORDERED: BUPIVACAINE 0.5% 30 ML SDV ONE (19:07)
--- NOTE | 2018-05-04 19:16 | PDANEPAE ---
ANE History of Present Illness Exploratory laparoscopy, SBO ANE Past Medical History - Cardiovascular History Hx Hypertension: No Hx Arrhythmias: No Hx Chest Pain: No Hx Coronary Artery / Peripheral Vascular Disease: No Hx CHF / Valvular Disease: No Hx Palpitations: No - Pulmonary History Hx COPD: No Hx Asthma/Reactive Airway Disease: No Hx Recent Upper Respiratory Infection: No Hx Oxygen in Use at Home: No Hx Sleep Apnea: No - Neurologic History Hx Cerebrovascular Accident: No - Endocrine History Hx Diabetes: No - Renal History Hx Renal Disorders: No - Liver History Hx Hepatic Disorders: No - Neurological & Psychiatric Hx Hx Neurological and Psychiatric Disorders: Yes Neurological / Psychiatric History 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 - Cancer History Hx Cancer: Yes Cancer History Comment: pancreatic cancer, dx in 03/13 - GI History Hx Gastrointestinal Disorders: Yes Gastrointestinal History Comment: GI Bleeding - Chronic Pain History Chronic Pain: No - Surgical History Prior Surgeries: cholecystectomy, endometrial ablation ANE Review of Systems Review of systems is: negative Review of Systems: - Exercise capacity Exercise capacity: >=4 METS ANE Patient History - Allergies Allergies/Adverse Reactions: No Allergies [NKDA] Allergy (Verified 05/04/18 14:31) - Home Medications Home medications: home medication list seen and reviewed Home Medications: Estradiol/Norethindrone Acet [Activella 0.5-0.1 mg Tablet] 1 each PO DAILY 12/07 [Last Taken 05/02/18] LORazepam [Ativan (*)] 1 mg PO HS PRN 12/07/17 [Last Taken 05/03/18] Lipase/Protease/Amylase [Creon Dr 36,000 Units Capsule] 2 each PO TIDMEAL [Last Taken 05/02/18] Loperamide HCl [Imodium 2 mg (*)] 2 mg PO PRN PRN 12/07/17 [Last Taken 05/02/18] Multivitamins [Multivitamin (*)] 1 each PO DAILY 12/07/17 [Last Taken 05/02/18] Potassium Cl [Klor-Con 20 meq (*)] 20 meq PO DAILY 12/07/17 [Last Taken 05/02/18 ] Simethicone [Gas Relief] 80 mg PO QID PRN 12/07/17 [Last Taken 11/30/17] Acetaminophen [Tylenol ES 500 mg (*)] 1,000 mg PO Q8H PRN 05/04/18 [Last Taken 05/04/18 11:30] Alpha Lipoic Acid 600 mg PO DAILY 05/04/18 [Last Taken 05/02/18] Dexamethasone [Decadron 4 MG (*)] 2 mg PO DAILY 05/04/18 [Last Taken 05/03/18] Hydrocodone/Acetaminophen [[place] 5/325 (*)] 1 tab PO Q4H PRN 05/04/18 [Last Taken Unknown] Nadolol [Nadolol 40 mg] 40 mg PO HS 05/04/18 [Last Taken 05/02/18] Omeprazole 20 mg PO DAILY 05/04/18 [Last Taken 05/02/18] Ondansetron HCl [Zofran] 8 mg PO Q8H 05/04/18 [Last Taken 05/03/18] traMADol [Ultram 50 mg (*)] 50 mg PO Q4 PRN 05/04/18 [Last Taken 1 Week Ago ~07/14] - NPO status NPO Status: no food or drink >8 hours NPO Since - Liquids (Date): 05/04/18 NPO Since - Liquids (Time): 12:00 NPO Since - Solids (Date): 05/04/18 NPO Since - Solids (Time): 12:00 - Anes Hx Anes Hx: no prior problems - Smoking Hx Smoking Status: Never smoked - Family Anes Hx Family Anes Hx: none ANE Labs/Vital Signs - Labs Result Diagrams: 05/04/18 15:50 05/04/18 15:50 - Vital Signs Vital Signs: reviewed preoperatively; see RN documention for details Blood Pressure: 109/70 Heart Rate: 71 Respiratory Rate: 16 O2 Sat (%): 95 Height: 167.64 cm Weight: 62.596 kg ANE Physical Exam - Airway Neck exam: FROM Mallampati Score: Class 1 Mouth exam: normal dental/mouth exam - Pulmonary Pulmonary: no respiratory distress - Cardiovascular Cardiovascular: regular rate and rhythym - ASA Status ASA Status: III ANE Anesthesia Plan Anesthesia Plan: general endotracheal anesthesia
--- NOTE | 2018-05-04 19:16 | PDGENHP ---
History and Physical - Chief Complaint abdominal pain, bloating - History of Present Illness 63yo F c metastatic pancreatic cancer. Presents tonight with progressive abdominal distention and abdominal pain. Last week felt well, last real BM was probably last weekend. [place] distended through the early parts of miguel angel week, had chemo yesterday which went well but the distention and pain got worse. Not passing gas, is passing some liquid from below but nothing eventful. No nausea, no vomiting. History Information - Allergies/Home Medication List Allergies/Adverse Reactions: No Allergies [NKDA] Allergy (Verified 05/04/18 14:31) Home Medications: Estradiol/Norethindrone Acet [Activella 0.5-0.1 mg Tablet] 1 each PO DAILY 12/07 [Last Taken 05/02/18] LORazepam [Ativan (*)] 1 mg PO HS PRN 12/07/17 [Last Taken 05/03/18] Lipase/Protease/Amylase [Creon Dr 36,000 Units Capsule] 2 each PO TIDMEAL [Last Taken 05/02/18] Loperamide HCl [Imodium 2 mg (*)] 2 mg PO PRN PRN 12/07/17 [Last Taken 05/02/18] Multivitamins [Multivitamin (*)] 1 each PO DAILY 12/07/17 [Last Taken 05/02/18] Potassium Cl [Klor-Con 20 meq (*)] 20 meq PO DAILY 12/07/17 [Last Taken 05/02/18 ] Simethicone [Gas Relief] 80 mg PO QID PRN 12/07/17 [Last Taken 11/30/17] Acetaminophen [Tylenol ES 500 mg (*)] 1,000 mg PO Q8H PRN 05/04/18 [Last Taken 05/04/18 11:30] Alpha Lipoic Acid 600 mg PO DAILY 05/04/18 [Last Taken 05/02/18] Dexamethasone [Decadron 4 MG (*)] 2 mg PO DAILY 05/04/18 [Last Taken 05/03/18] Hydrocodone/Acetaminophen [[place] 5/325 (*)] 1 tab PO Q4H PRN 05/04/18 [Last Taken Unknown] Nadolol [Nadolol 40 mg] 40 mg PO HS 05/04/18 [Last Taken 05/02/18] Omeprazole 20 mg PO DAILY 05/04/18 [Last Taken 05/02/18] Ondansetron HCl [Zofran] 8 mg PO Q8H 05/04/18 [Last Taken 05/03/18] traMADol [Ultram 50 mg (*)] 50 mg PO Q4 PRN 05/04/18 [Last Taken 1 Week Ago ~07/14] I have personally reviewed and updated: medical history, social history, surgical history Past Medical History: metastatic pancreatic ca - Surgical History Additional surgical history: lap olu - Family History Positive for: non-pertinent - Social History Smoking Status: Never smoked Alcohol Use: None Additional social history: retired nurse Review of Systems Review of Systems: ROS: 10pt was reviewed & negative except for what was stated in HPI & below Physical Exam Physical Exam: Temp Pulse Resp BP Pulse Ox 37.1 C 71 16 109/70 95 05/04/18 18:32 05/04/18 18:32 05/04/18 18:32 05/04/18 18:32 05/04/18 18:32 Constitutional: appears nourished, not in pain, uncomfortable Eyes: PERRL, anicteric sclera, EOMI Ears, Nose, Mouth, Throat: moist mucous membranes, hearing normal, ears appear normal, no oral mucosal ulcers Cardiovascular: regular rate and rhythym, no murmur, rub, or gallop, No edema Respiratory: no respiratory distress, no rales or rhonchi, clear to auscultation Gastrointestinal: other (hyperactive bowel sounds, distended, tender, no rebound. ) Genitourinary: no bladder fullness, no bladder tenderness Skin: warm, normal color, no rashes or abrasions, no fluctuance, no induration, No mottled Musculoskeletal: full muscle strength, no muscle tenderness, normal joint ROM, no joint effusions Psychiatric: interacting appropriately, not anxious, not encephalopathic, thought process linear Lymph, Heme, Immunologic: no cervical LAD, no supraclavicular LAD Lab Data & Imaging Review 05/04/18 15:50 05/04/18 15:50 WBC 6.20 10^3/uL (3.80-9.50) 05/04/18 15:50 RBC 3.76 10^6/uL (4.18-5.33) L 05/04/18 15:50 Hgb 12.5 g/dL (12.6-16.3) L 05/04/18 15:50 POC Hgb 12.6 gm/dL (12.6-16.3) 05/04/18 16:06 Hct 37.4 % (38.0-47.0) L 05/04/18 15:50 POC Hct 37 % (38-47) L 05/04/18 16:06 MCV 99.5 fL (81.5-99.8) 05/04/18 15:50 MCH 33.2 pg (27.9-34.1) 05/04/18 15:50 MCHC 33.4 g/dL (32.4-36.7) 05/04/18 15:50 RDW 19.9 % (11.5-15.2) H 05/04/18 15:50 Plt Count 329 10^3/uL (150-400) 05/04/18 15:50 MPV 9.9 fL (8.7-11.7) 05/04/18 15:50 Neut % (Auto) 81.5 % (39.3-74.2) H 05/04/18 15:50 Lymph % (Auto) 8.4 % (15.0-45.0) L 05/04/18 15:50 [place] % (Auto) 9.2 % (4.5-13.0) 05/04/18 15:50 Eos % (Auto) 0.2 % (0.6-7.6) L 05/04/18 15:50 Baso % (Auto) 0.2 % (0.3-1.7) L 05/04/18 15:50 Nucleat RBC Rel Count 0.0 % (0.0-0.2) 05/04/18 15:50 Absolute Neuts (auto) 5.05 10^3/uL (1.70-6.50) 05/04/18 15:50 Absolute Lymphs (auto) 0.52 10^3/uL (1.00-3.00) L 05/04/18 15:50 Absolute Monos (auto) 0.57 10^3/uL (0.30-0.80) 05/04/18 15:50 Absolute Eos (auto) 0.01 10^3/uL (0.03-0.40) L 05/04/18 15:50 Absolute Basos (auto) 0.01 10^3/uL (0.02-0.10) L 05/04/18 15:50 Absolute Nucleated RBC 0.00 10^3/uL (0-0.01) 05/04/18 15:50 Immature Gran % 0.5 % (0.0-1.1) 05/04/18 15:50 Immature Gran # 0.03 10^3/uL (0.00-0.10) 05/04/18 15:50 RBC/WBC/PLT Morphology TNP 05/04/18 15:50 Platelet Estimate ADEQUATE (ADEQ) 05/04/18 15:50 Microcytic Cells 1+ H 05/04/18 15:50 POC Sodium 136 mEq/L (135-145) 05/04/18 16:06 Sodium 134 mEq/L (135-145) L 05/04/18 15:50 POC Potassium 4.2 mEq/L (3.3-5.0) 05/04/18 16:06 Potassium 4.6 mEq/L (3.3-5.0) 05/04/18 15:50 POC Chloride 100 mEq/L (97-110) 05/04/18 16:06 Chloride 99 mEq/L (97-110) 05/04/18 15:50 Carbon Dioxide 27 mEq/l (22-31) 05/04/18 15:50 Anion Gap 8 mEq/L (6-14) 05/04/18 15:50 POC BUN 32 mg/dL (7-23) H 05/04/18 16:06 BUN 33 mg/dL (7-23) H 05/04/18 15:50 Creatinine 0.7 mg/dL (0.6-1.0) 05/04/18 15:50 POC Creatinine 0.7 mg/dL (0.6-1.0) 05/04/18 16:06 Estimated GFR > 60 05/04/18 15:50 Glucose 138 mg/dL (70-100) H 05/04/18 15:50 POC Glucose 144 mg/dL (70-100) H 05/04/18 16:06 Calcium 8.9 mg/dL (8.5-10.4) 05/04/18 15:50 Total Bilirubin 1.6 mg/dL (0.1-1.4) H 05/04/18 15:50 Conjugated Bilirubin 0.3 mg/dL (0.0-0.5) 05/04/18 15:50 Unconjugated Bilirubin 1.3 mg/dL (0.0-1.1) H 05/04/18 15:50 AST 39 IU/L (14-46) 05/04/18 15:50 ALT 61 IU/L (9-52) H 05/04/18 15:50 Alkaline Phosphatase 88 IU/L (38-126) 05/04/18 15:50 Total Protein 6.3 g/dL (6.3-8.2) 05/04/18 15:50 Albumin 3.9 g/dL (3.5-5.0) 05/04/18 15:50 Lipase 114 IU/L (23-300) 05/04/18 15:50 Interpretation: CT: distal colon obstruction, prox colon very distended, ? pneumatosis Assessment & Plan Assessment: 63yo F c acute colonic obstruction with distended prox colon, ? pneumatosis Plan: given colonic distention and ? of pneumatosis my recommendation was for urgent OR. Plan will be for loop colostomy for decompression. I reviewed the images with the patient and her . OR marisela. RBA discussed.
[2018-05-04] MEDS ORDERED: MIDAZOLAM 2 MG/2 ML VIAL IVP ONE (19:17)
[2018-05-04] MEDS ORDERED: PROPOFOL 200 MG/20 ML VIAL ONE (19:35)
[2018-05-04] MEDS ORDERED: LIDOCAINE 2% 100 MG/5 ML SYR ONE (19:35)
[2018-05-04] MEDS ORDERED: DEXAMETHASONE 4 MG/ML VIAL ONE (19:35)
[2018-05-04] MEDS ORDERED: fentaNYL 100 MCG/2 ML INJ ONE (19:35)
[2018-05-04] MEDS ORDERED: ONDANSETRON 4 MG/2 ML VIAL ONE (19:35)
[2018-05-04] MEDS ORDERED: ROCURONIUM 50 MG/5 ML VIAL ONE (19:36)
[2018-05-04] MEDS ORDERED: PHENYLEPHRINE HCL 100 MCG/ML SYR ONE (19:57)
[2018-05-04] MEDS ORDERED: LR 1,000 ML IV ONE (20:05)
[2018-05-04] MEDS ORDERED: ceFAZolin 1 GM VIAL ONE ×2 (20:09)
[2018-05-04] MEDS ORDERED: HYDROCODONE/APAP 5/325 TAB PO PRN (20:36)
[2018-05-04] MEDS ORDERED: DEXAMETHASONE 4 MG/ML VIAL IVP PRN (20:36)
[2018-05-04] MEDS ORDERED: oxyCODONE IR 5 MG TAB PO PRN (20:36)
[2018-05-04] MEDS ORDERED: NALOXONE HCL 0.4 MG/ML INJ IVP PRN (20:36)
[2018-05-04] MEDS ORDERED: HYDROmorphONE/DILAUDID 2 MG/ML INJ IVP PRN (20:36)
[2018-05-04] MEDS ORDERED: fentaNYL 100 MCG/2 ML INJ IVP PRN (20:36)
[2018-05-04] MEDS ORDERED: ACETAMINOPHEN 500 MG TAB PO PRN (20:36)
[2018-05-04] MEDS ORDERED: MEPERIDINE 25 MG/0.5 ML AMP IVP PRN (20:36)
--- NOTE | 2018-05-04 20:36 | POSTANESTH ---
Post Anesthetic Evaluation Cardiovascular Status: Normal, Stable, Similar to Pre-Op Cond, Tx Over/Under Hydration Respiratory Status: Normal, Stable Level of Consciousness/Mental Status: Can Participate in Eval, Mildly Sleepy, Arousable Pain Control: Adequate, Prn Tx Ordered Nausea/Vomiting Control: Adequate, Prn Tx Ordered Complications Possibly Related to Anesthesia: None Noted
[2018-05-04] MEDS ORDERED: NEOSTIGMINE METHYLSULFATE 5 MG/5 ML SYR ONE (20:48)
[2018-05-04] MEDS ORDERED: GLYCOPYRROLATE 0.2 MG/1 ML VIAL ONE (20:48)
--- NOTE | 2018-05-04 21:06 | POSTOPPROG ---
Post Op Note Date of Operation: 05/04/18 Surgeon: Abbe Fofana Anesthesiologist: Lori Anesthesia: GET(General Endotracheal) Pre-op Diagnosis: Large bowel obstruction Post-op Diagnosis: same Procedure: Explratry laparoscopy, loop transverse colostomy Findings: very dilated colon, viable. Distal transverse colostomy Inf/Abcess present in the surg proc area at time of surgery?: No EBL: Minimal
[2018-05-04] MEDS ORDERED: ACETAMINOPHEN 500 MG TAB ONE (21:30)
[2018-05-05] MEDS ORDERED: LORazepam 2 MG/ML INJ IVP PRN (00:04)
[2018-05-05] MEDS: ACETAMINOPHEN 325 MG TAB PO PRN ×3 (04:09→18:46)
--- NOTE | 2018-05-05 06:26 | GOP ---
DATE OF OPERATION: 05/04/2018 SURGEON: Abbe Fofana MD CORPORATE TRAVEL AGENT: None. ANESTHESIA: General endotracheal. ANESTHESIOLOGIST: Dr. Isaac Coronel. PREOPERATIVE DIAGNOSIS: Large bowel obstruction. POSTOPERATIVE DIAGNOSIS: Large bowel obstruction. PROCEDURE PERFORMED: 1. Exploratory laparoscopy. 2. Loop distal transverse colostomy. FINDINGS: Very dilated colon, but appeared viable on visualization. A lot of ascites throughout the abdomen. I did visualize the pelvis. I did not see any extrinsic masses. Distal loop transverse c olostomy was performed. SPECIMENS: None. ESTIMATED BLOOD LOSS: 10 cc. DESCRIPTION OF PROCEDURE: The patient was greeted in the preoperative suite. Once again, risks, gilda efits, and alternatives were discussed. The consent was then signed. She was brought back to the op erative suite, placed on the OR table in supine position. After all anesthesia machines, including S CDs were on and functioning, a [employer] time-out was performed. After successful in duction of general anesthesia, the patient's abdomen was prepped and draped in typical sterile fashio n. I commenced the procedure by making an infraumbilical cutdown. I entered the abdomen bluntly. Once successfully in the abdomen, I placed a 12 mm trocar, insufflated to 15 mmHg, which was well tolerate d by the patient. I inserted a 5 mm camera into the patient's abdomen. Again, given the significant dilatation of the colon, visualization was difficult; however, the entire visualized colon was viabl e and I did not see any free air or any other significant findings. I did place the patient in [place] position and look into the pelvis. I did not see any extrinsic masses consistent with an ex ternal compression. I then turned my attention toward the left upper quadrant. I identified the transverse colon. The t ransverse colon, the distal portion was somewhat redundant. I grasped this portion through an additi onal stab incision in the left abdomen just adjacent to the umbilicus. Through this, I placed a 5 mm port. I then desufflated. I created a colostomy through the rectus at this and tunneled the distal transverse colon through it. Once the colon was successfully through, I created a defect in the mesocolon through which I threaded a red rubber catheter. I then made a transverse colotomy and fashioned a loop distal transverse col ostomy. I digitized both the proximal and distal and both were open and draining stool. I matured t he colostomy with interrupted 3-0 Vicryl stitches. The red rubber was sewn to the skin with silk. A colostomy appliance was placed. My infraumbilical port site was closed with an 0 Vicryl stitch. Steri-Strips were placed. Patient w as then extubated in the operative suite and taken to PACU in satisfactory condition. DRAINS: None. COUNTS: All counts were as correct x2. /[id number]/MODL
[2018-05-05] MEDS ORDERED: ENOXAPARIN 40 MG/0.4 ML SYR SC SCH (09:00)
--- NOTE | 2018-05-05 09:34 | PDMN ---
Medical Necessity Medical necessity: Pt meets inpt criteria per MD order and MCG M-210, Intestinal Obstruction. 63 y/o w/metastatic pancreatic cancer presented w/ abdominal pain and distension, admitted w/acute colonic obstruction requiring urgent surgical intervention, exploratory lap and loop transverse colostomy. Anticipate>2MN for ongoing monitoring/treatment.
--- NOTE | 2018-05-05 12:39 | HOSPPROG ---
Hospitalist Progress Note Assessment/Plan: bowel obstruction, s/p emergent loop distal transverse colostomy yesterday -pain control OK -clears OK per Dr Fofana, revwd care plan with him -colostomy care teaching Metastatic pancreatic cancer - followed by Dr. Altamirano, just completed cycle 1 of Gemcitabine / Abraxane -discussed with Dr Altamirano -no urgent need for rectal biopsy as wouldnt change chemo/treatment plans at this time DNR PCP Dr Umesh Warren/Dr Altamirano Dispo - likely discharge in next 24-248 hrs if tolerating diet/pain OK with oral meds/staying hydrated Subjective: Pain/N ok with meds. Concerned re rectal mass, need for biopsy. Objective: Vital Signs Temp Pulse Resp BP Pulse Ox 99.2 F 67 16 97/57 L 96 05/05/18 08:00 05/05/18 08:00 05/05/18 08:00 05/05/18 08:00 05/05/18 08:00 Laboratory Results 05/04/18 15:50 05/05/18 04:00 05/04/18 05/05/18 05/06/18 11:59 11:59 11:59 Intake Total 2830 Output Total 725 Balance 2105 - Time Spent With Patient Time Spent with Patient: greater than 35 minutes Time Spent with Patient: Greater than 35 minutes spent on this patients care, greater than 50% of time spent counseling, educating, and coordinating care regarding the above mentioned plan. - Physical Exam Constitutional: no apparent distress, other (thin) Eyes: PERRL, anicteric sclera Ears, Nose, Mouth, Throat: moist mucous membranes, hearing normal Cardiovascular: regular rate and rhythym Respiratory: no respiratory distress, no rales or rhonchi, clear to auscultation Gastrointestinal: normoactive bowel sounds Skin: warm Psychiatric: interacting appropriately, not anxious, not encephalopathic, thought process linear ICD10 Worksheet Patient Problems: Problems Problem Status Onset Abdominal pain Acute Esophageal varices Acute GI bleed Acute SBO (small bowel obstruction) Acute Pancreatic cancer metastasized to liver Chronic
--- NOTE | 2018-05-05 13:03 | ASMTCMCOM ---
CM Note CM Note Notes: Pt lives in [place] with . Pt has metastatic pancreatic cancer and just had colectomy with new colostomy yesterday. Pt to have biopsy of colon mass possibly tomorrow with GI. Pt could discharge home as early as Tuesday. WC RN consulted for teaching today if possible. Pt accepted by [facility] for ostomy care and education. Pt current with [facility]. Referral sent. CM to follow. D/C Plan: Home with [facility] and [facility] Date Signed: 05/05/2018 01:02 PM Electronically Signed By:Lucille Morales
[2018-05-05] MEDS ORDERED: LORazepam 1 MG TAB PO PRN (15:28)
[2018-05-05] MEDS ORDERED: HYDROCODONE/APAP 5/325 TAB PO PRN (15:30)
--- NOTE | 2018-05-05 16:40 | ASMTCMCOM ---
CM Note CM Note Notes: Addendum: [facility] was not able to accept pt after all. [facility] has accepted and they are aware pt may need day of discharge ostomy teaching by one of their RNs. Pt possible discharge tomorrow or Tuesday. [facility] aware. Pt also current with [facility] and they have been updated. CM to follow. D/C Plan: [facility] medical office technician for ostomy care. Date Signed: 05/05/2018 04:16 PM Electronically Signed By:Lucille Morales
[2018-05-05] MEDS: PROTEASE PO SCH (18:36)
[2018-05-05] MEDS: LIPASE PO SCH (18:36)
[2018-05-05] MEDS: AMYLASE PO SCH (18:36)
--- NOTE | 2018-05-05 23:21 | WOCRNPDOC ---
RAISSA Advanced Assessment Note - Colostomy Assessment, Advanced Left Upper Abdomen Colostomy Stoma Colostomy Appliance Intact: Yes Colostomy Appliance Currently in Use: Two Piece Flat Stoma Color: Makena Stoma Turgor: Moist Stoma Shape: Round Stoma Height: Protruding Colostomy Effluent: Flatus, Fecal, Liquid Colostomy Size - Head-to-Toe Length X Width X Depth (cm): 4.4x4.4 Colostomy Details: Colectomy Peristomal Skin: Intact Colostomy Comment/Treatment Details: Patient alert and oriented and interested in ostomy teaching. Apparently, it is possible that patient may DC over the weekend so an attempt was made to combine several days teaching into this afternoon. Patient was reassured that she will go home with the support of home health but patient also interested in being fairly independent with ostomy cares. Both Day 1 and Day 2 teachings delivered to patient. We covered the Day 1 material in depth, including practicing measuring the enclosed stoma and cutting a wafer to fit. We discussed various pouch/appliance options and some of the benefits and drawbacks of each. We discussed emtying the pouch and I had Stephanie show me how to close the bottom of the pouch. We practiced connecting a wafer to a pouch in a 2 piece flat appliance. I then took down her appliance and I talked her through the process. I demonstrated how to clean the stoma and showed her again how to measure it. She cut the wafer based on the measurements. We talked about skin care of the prince stomal skin and the importance of thoroughly drying the skin before reapplying the wafer. I applied the wafer Stephanie cut to the stoma and attached the pouch. I then applied a warm blanket to the site. All patient questions were answered. In total, I spent 75 minutes with the patient educating and answering questions. She will likely need more practice and reinforcement to become proficient but I have no doubts, based on her eagerness to learn, that she'll be able to manage at home with the support of [facility].
[2018-05-06] MEDS: ACETAMINOPHEN 325 MG TAB PO PRN (08:07)
[2018-05-06 09:32] LABS: PLATELET COUNT 244 10^3/uL (150-400)
--- NOTE | 2018-05-06 10:26 | WOCRNPDOC ---
RAISSA Advanced Assessment Note - Colostomy Assessment, Advanced Left Upper Abdomen Colostomy Stoma Colostomy Comment/Treatment Details: Stopped by patient's room this AM to see if she had any further questions about teachings last night. No questions at this time. Received verbal permission to get patient enrolled in [employer]. Home order form also given to CM.
[2018-05-06] MEDS: LIPASE PO SCH ×2 (10:58→13:19)
[2018-05-06] MEDS: AMYLASE PO SCH ×2 (10:58→13:19)
[2018-05-06] MEDS: PROTEASE PO SCH ×2 (10:58→13:19)
--- NOTE | 2018-05-06 11:44 | SOAPPROG ---
SOAP Progress Note Assessment/Plan: Assessment: s/p diverting colostomy for obstruction will advance diet If tolerates can dc home Home care S: Feeling better today. Still a lot to take in O: Appears well Moves easily to supine position Incision cdi Ostomy pink with good profile, liquid stool and gas in bag Plan: 05/06/18 11:43 Objective: Vital Signs Temp Pulse Resp BP Pulse Ox 36.6 C 80 18 107/70 96 05/06/18 08:00 05/06/18 08:00 05/06/18 08:00 05/06/18 08:00 05/06/18 08:00 Laboratory Results 05/06/18 07:55 05/06/18 07:55 05/05/18 05/06/18 05/07/18 05:59 05:59 05:59 Intake Total 1830 1500 Output Total 725 2710 1050 Balance 1105 -1210 -1050 ICD10 Worksheet Patient Problems: Problems Problem Status Onset Abdominal pain Acute SBO (small bowel obstruction) Acute Esophageal varices Acute GI bleed Acute Pancreatic cancer metastasized to liver Chronic
--- NOTE | 2018-05-06 12:20 | ASMTCMCOM ---
CM Note CM Note Notes: A supply form for ostomy care has been faxed to [facility] for pt. Date Signed: 05/06/2018 12:20 PM Electronically Signed By:iDsha Barrios
[2018-05-06 15:10] VITALS: BP 114/66
--- NOTE | 2018-05-06 15:26 | PDIAF ---
- Diagnosis Code Status: Do Not Resuscitate - Medication Management Prison Antibiotics: n/a Discharge Medications: electronically signed and located in the Home Medication List. - Orders Services needed: Home Shelter Care Face to Face: I certify that this patient was under my care and that I had the required [id number] encounter meeting the encounter requirements on the discharge day. My findings support the fact that the patient is homebound as defined in Home Care Face to Face Continued: CMS Chapter 7 Medicare Benefits Manual 30.1.1 , The condition of the patient is such that there exists a normal inability to leave home and consequently, leaving home would require a considerable and taxing effort. Isolation Type: None Diet Recommendation: no restrictions on diet (bland) Diet Texture: Regular Texture Diet Tube feeding: n/a Weigh Patient: weekly [place]ano: No Wound Care Instructions: Colostomy education and care Additional Instructions: When you go home you will be receiving samples from several companies. We understand that at first you may feel overwhelmed by all the choices. The ostomy nurses recommend that you continue with the appliance you were discharged with when you left the hospital for a month or two to adjust to the appliance. If however you have problems with leaking or itching under you faceplate, you may want to try some of the samples.~ After you have adjusted to your stoma and feel ready, then you may look at the features of the new appliances and see if there is one that you like the look/feel/performance of better. If you have any leaking or pouching issues, we recommend a consultation with our outpatient ostomy nurses. You can reach them at [phone] [facility]. Please note that they are often scheduled several weeks out.~ May shower. Do not need to protect the ostomy when in the shower Walk daily Follow up at [facility] this week for chemo as already planned - Follow Up Care Current Providers and Referrals: Stephane Warren MD [Primary Care Provider] - As per Instructions (no appt needed at this time) Abbe Fofana MD [Medical Doctor] - follow up in 10 days Maurizio Altamirano MD [Medical Doctor] - 3-5 days (already scheduled for chemo this coming week)
--- NOTE | 2018-05-06 16:17 | ASMTLACE ---
LACE Length of stay for Answers: 3 days current admission Acuity / Level of Answers: Yes Care: Did the patient have an inpatient admission? Comorbidities - select Answers: Any tumor (including all that apply lymphoma or leukemia) # of Emergency department Answers: 1-2 visits in the last 6 months Score: 9 Date Signed: 05/06/2018 04:16 PM Electronically Signed By:JARON Bender
--- NOTE | 2018-05-06 16:19 | ASMTCMCOM ---
CM Note CM Note Notes: Pt medically stable for d/c with [facility] HC RN to start tomorrow. Orders sent to [facility] and Cristina at [facility] notified. Pt provided [facility] HC office # and Cristina's cell. Date Signed: 05/06/2018 04:18 PM Electronically Signed By:JARON Bender
--- NOTE | 2018-05-06 16:23 | ASDISCHSUM ---
Discharge Information Plan Status:Home with Home Health Medically Cleared to Leave: Discharge Date:05/06/2018 04:14 PM D/C [facility]position[facility] Projected Discharge Date:05/06/2018 11:00 AM Transportation at D/C: Discharge Delay Reason: Follow-Up Date:05/06/2018 11:00 AM Discharge Slot: Final Diagnosis: Placement Information Referral Type:*Home Health Care Services Referral ID:[id number] Provider Name:[facility] ([email or web address]) Address 1:[address] [address] Address 2: City:[place] Selection Factors: State:[place] Referral Type:Palliative Care Referral ID:[id number] Provider Name:[facility] Address 1:[address] Address 2: City:[place] Selection Factors: State:[place] Patient Contact Information Contact Name:GARCÍA Relationship: Address:[address] City:[place] Alternate Phone: [facility]/Zip Code:[place] [address] Email: Financial Information Financial Class:HMO and PPO Plans Primary Plan Desc:[facility] Primary Plan Number:[id number] Secondary Plan Desc: Secondary Plan Number: Assessment Information LACE LACE Length of stay for Answers: 3 days current admission Acuity / Level of Answers: Yes Care: Did the patient have an inpatient admission? Comorbidities - select Answers: Any tumor (including all that apply lymphoma or leukemia) # of Emergency department Answers: 1-2 visits in the last 6 months Score: 9 Date Signed: 05/06/2018 04:16 PM Electronically Signed By:JARON Bender [facility] CM Progress Note CM Note CM Note Notes: Pt lives in [place] with . Pt has metastatic pancreatic cancer and just had colectomy with new colostomy yesterday. Pt to have biopsy of colon mass possibly tomorrow with GI. Pt could discharge home as early as Tuesday. WC RN consulted for teaching today if possible. Pt accepted by [facility] for ostomy care and education. Pt current with [facility]. Referral sent. CM to follow. D/C Plan: Home with [facility] and [facility] Date Signed: 05/05/2018 01:02 PM Electronically Signed By:Lucille Morales [facility] CM Progress Note CM Note CM Note Notes: Addendum: [facility] was not able to accept pt after all. [facility] has accepted and they are aware pt may need day of discharge ostomy teaching by one of their RNs. Pt possible discharge tomorrow or Tuesday. [facility] aware. Pt also current with [facility] and they have been updated. CM to follow. D/C Plan: [facility] resource director for ostomy care. Date Signed: 05/05/2018 04:16 PM Electronically Signed By:Lucille Morales [facility] CM Progress Note CM Note CM Note Notes: A supply form for ostomy care has been faxed to [facility] for pt. Date Signed: 05/06/2018 12:20 PM Electronically Signed By:Disha Barrios [facility] CM Progress Note CM Note CM Note Notes: Pt medically stable for d/c with [facility] HC RN to start tomorrow. Orders sent to [facility] and Cristina at [facility] notified. Pt provided [facility] office # and Cristina's cell. Date Signed: 05/06/2018 04:18 PM Electronically Signed By:JARON Bender [facility] CM Progress Note CM Note CM Note Notes: Orders also sent to [facility]. Date Signed: 05/06/2018 04:22 PM Electronically Signed By:JARON Bender Intervention Information Intervention Type:*Incorrect Registration Date of Service:05/05/2018 09:24 AM Patient Type:Inpatient Staff Member:ALEM Sadler, Yany Hours: Discipline: Severity: Comment:
--- NOTE | 2018-05-06 16:23 | ASMTCMCOM ---
CM Note CM Note Notes: Orders also sent to [facility]. Date Signed: 05/06/2018 04:22 PM Electronically Signed By:JARON Bender
== END 2018-05-06 16:14 | disposition home health service (06) | DRG 330 ==
LOC: OBSVTOIN 15:32 → F1N 17:18
PROVIDERS: ADMIT Hospitalist; ATTEND Hospitalist
PROC: 0D1L4Z4 Bypass Transverse Colon to Cutaneous, Percutaneous Endoscopic Approach (ICD-10-PCS; principal; 2018-05-04 19:30)
DX: K56.609 Unspecified intestinal obstruction, unspecified as to partial versus complete obstruction (principal); C25.9 Malignant neoplasm of pancreas, unspecified; C78.7 Secondary malignant neoplasm of liver and intrahepatic bile duct; R18.8 Other ascites; Z66 Do not resuscitate
CPT/HCPCS: 82435-PO; 82565-PO; 82947-PO; 84132-PO; 84295-PO; 84520-PO; 85014-PO; J0690; J1100; J1650; J2001; J2060; J2370; J2405; J2704; J2710; J3010; Q9967

== ENCOUNTER → 2018-05-04 | Outpatient (CLI) | payer OTHER ==
[~2018-05-04] MED LIST: MIDAZOLAM 2 MG/2 ML VIAL ONE
== END ==
LOC: FIMAGING 12:21
PROVIDERS: ATTEND Internal Medicine Hematology & Oncology
DX: C25.1 Malignant neoplasm of body of pancreas (principal); C80.1 Malignant (primary) neoplasm, unspecified; R10.0 Acute abdomen; R11.11 Vomiting without nausea; K59.00 Constipation, unspecified
CPT/HCPCS: J2250

== ENCOUNTER 2018-05-19 17:39 | Emergency (ER) | payer OTHER ==
[2018-05-19 17:46] VITALS: BP 126/79
== END 2018-05-19 18:19 | disposition home or self-care (01) ==
LOC: SUPCPDRO 17:39
DX: Z43.3 Encounter for attention to colostomy (principal)